=== PATIENT | male | born 1985 | race Caucasian/White ===

== ENCOUNTER 2021-10-18 19:49 | Emergency (ER) | payer MEDICAID ==
[~2021-10-18] VITALS: Ht 172.7 cm; Wt 66.0 kg
[2021-10-18 22:34] LABS: HEMOGLOBIN. 13.9 g/dL (14.0-18.0); MEAN CORPUSCULAR HEMOGLOBIN 28.1 pg (28.0-32.0); MEAN CORPUSCULAR VOLUME 85.1 fL (80.0-94.0); MEAN PLATELET VOLUME 8.3 fl (7.4-10.4); PLATELET 223 x1000/uL (130-400); RED BLOOD CELL COUNT 4.94 mill/uL (4.7-6.1); RED CELL DISTRIBUTION WIDTH 13.5 % (11.6-14.6)
[2021-10-18 22:47] LABS: CHLORIDE 106 mEq/L (98-107)
[2021-10-18 23:16] LABS: PLATELET ESTIMATE NORMAL
[2021-10-19] MEDS ORDERED: SODIUM CHLORIDE 0.9% 1,000 ML IV ONE (01:15)
[2021-10-19] MEDS ORDERED: ONDANSETRON HCL 4MG/2ML INJ IV ONE (01:15)
[2021-10-19 02:19] LABS: CLARITY URINE CLOUDY (CLEAR); COLOR URINE DARK YELLOW (YELLOW); KETONES URINE 4+ (NEGATIVE); LEUKOCYTE ESTERASE URINE TRACE (NEGATIVE); NITRITE URINE NEGATIVE (NEGATIVE); OCCULT BLOOD URINE NEGATIVE (NEGATIVE); PROTEIN URINE 2+ (NEGATIVE); SPECIFIC GRAVITY URINE 1.032 (1.005-1.030)
[2021-10-19] MEDS ORDERED: DICYCLOMINE HCL 10MG CAPSULE PO ONE (02:30)
[2021-10-19] MEDS ORDERED: KETOROLAC 15MG/ML VIAL IV ONE (02:30)
[2021-10-19] MEDS ORDERED: ONDA4TAB11 PO (03:21)
[2021-10-19 03:30] VITALS: BP 115/79
== END 2021-10-19 03:30 | disposition home or self-care (01) ==
LOC: ER 21:22
DX: R11.14 Bilious vomiting (principal); R19.7 Diarrhea, unspecified; R10.30 Lower abdominal pain, unspecified
CPT/HCPCS: 36415; 80053; 81003; 83690; 85025; 96361; 96374; 96375; 99284; J1885; J2405; J7030